=== PATIENT | female | born 1975 | race Caucasian/White ===

== ENCOUNTER 2017-05-09 19:21 | Inpatient (IN) | payer OTHER ==
[~2017-05-09] VITALS: Ht 160 cm; Wt 87.7 kg
[~2017-05-09 19:21] MED LIST: AMOXICILLIN 50500 MG PO; BUSPAR5 MG PO; CEPHALEXIN500 M1 PO; LORTAB 5/500 501 TAB PO; NO HOME MEDICATIONS; NORCO 325 MG-51 TAB; PERCOCET 5/321 UDTAB PO; PHENERGAN 25 TA25 MG PO; VICODIN 5/5001 UDTAB PO; ZANTAC 150150 MG PO
[2017-05-09 20:19] LABS: BASO % 0.7 % (0.0-2.0); EOS # 0.2 (0.0-0.7); EOS % 2.6 % (0-4.0); GRAN # 2.2 (1.4-6.5); GRAN % 37.6 % (42.2-75.2); LYMPH # 2.7 (1.2-3.4); LYMPH % 46.8 % (20.0-51.0); MEAN CELL VOLUME 81 fl (80.0-100.0); MEAN CORPUSCULAR HGB CONC 32 g/dl (33.0-37.0); MEAN PLATELET VOLUME 10.6 fl (7.4-10.4); MONO # 0.7 (0.1-0.6); MONO % 12.1 % (1.7-9.3); PLATELET COUNT 127 K/mm3 (130-400); RED BLOOD COUNT 3.27 M/mm3 (4.10-5.30); WHITE BLOOD COUNT 5.9 K/mm3 (4.8-10.8)
[2017-05-09 20:23] LABS: HEMATOCRIT 26.6 % (37.0-47.0); HEMOGLOBIN 8.4 g/dl (12.5-16.0); MEAN CORPUSCULAR HEMOGLOBIN 26 pg (27.0-31.0)
[2017-05-09 20:27] LABS: INR 1.5 (0.8-3.0)
[2017-05-09 20:33] LABS: ADJUSTED CALCIUM 8.7 mg/dL (8.4-10.2); ALANINE AMINOTRANSFERASE 33 U/L (9-52); ALBUMIN 2.8 gm/dL (3.5-5.0); ALKALINE PHOSPHATASE 145 U/L (50-136); ANION GAP 8 mmol/L (7-16); BILIRUBIN,TOTAL 1.8 mg/dL (0.0-1.0); BLOOD UREA NITROGEN 11 mg/dL (7-17); CALCIUM 7.7 mg/dL (8.4-10.2); CARBON DIOXIDE 28 mmol/L (22-30); CHLORIDE 100 mmol/L (98-107); CREATININE, serum 0.43 mg/dL (0.52-1.25); GLUCOSE 132 mg/dL (74-106); SODIUM 136 mmol/L (137-145); TOTAL PROTEIN 7.1 gm/dL (6.4-8.2)
[2017-05-09 20:45] LABS: B-TYPE NATRIURETIC PEPTIDE 1510 pg/mL (0-125)
[2017-05-09 20:46] LABS: POTASSIUM 2.8 mmol/L (3.4-5.0); TROPONIN-I < 0.012 ng/mL (0.000-0.034)
[2017-05-09 21:04] LABS: THYROID STIMULATING HORMONE < 0.015 uIU/mL (0.465-4.680)
[2017-05-09] MEDS ORDERED: TYLENOL 500MG500 MG PO (21:44)
[2017-05-09] MEDS ORDERED: LASIX 80MG TABL80 MG PO (21:44)
[2017-05-09] MEDS ORDERED: FLEXERIL5 MG PO (21:45)
[2017-05-09] MEDS ORDERED: TOPROL XL 25MG25 MG PO (21:46)
[2017-05-09] MEDS ORDERED: NATURAL IRON65 MG (21:46)
[2017-05-09] MEDS ORDERED: KLOR-CON M2020 MEQ PO (21:47)
[2017-05-09 23:14] VITALS: BP 146/77; PULSE 114; TEMP 98.3
[2017-05-09 23:19] VITALS: BP 146/77; PULSE 117; TEMP 98.3
[2017-05-10 03:41] VITALS: BP 110/84; PULSE 116; TEMP 98.7
[2017-05-10 06:03] LABS: BASO % 0.5 % (0.0-2.0); EOS # 0.2 (0.0-0.7); EOS % 2.7 % (0-4.0); GRAN # 1.9 (1.4-6.5); LYMPH # 2.9 (1.2-3.4); LYMPH % 51.6 % (20.0-51.0); MEAN CELL VOLUME 83 fl (80.0-100.0); MEAN CORPUSCULAR HGB CONC 32 g/dl (33.0-37.0); MEAN PLATELET VOLUME 10.7 fl (7.4-10.4); MONO # 0.7 (0.1-0.6); MONO % 12.2 % (1.7-9.3); PLATELET COUNT 126 K/mm3 (130-400); WHITE BLOOD COUNT 5.6 K/mm3 (4.8-10.8)
[2017-05-10 06:07] LABS: HEMATOCRIT 24.8 % (37.0-47.0); HEMOGLOBIN 7.8 g/dl (12.5-16.0); MEAN CORPUSCULAR HEMOGLOBIN 26 pg (27.0-31.0)
[2017-05-10 06:16] LABS: CALCIUM 7.6 mg/dL (8.4-10.2); CREATININE, serum 0.41 mg/dL (0.52-1.25); POTASSIUM 3.4 mmol/L (3.4-5.0)
[2017-05-10 07:15] VITALS: BP 135/70; PULSE 110; TEMP 98.1
[2017-05-10 11:00] VITALS: BP 124/60; PULSE 113
[2017-05-10 16:05] LABS: ARTERIAL BLD GAS O2 SATURATION 95.7 % (92-100); ARTERIAL BLD GAS TCO2 CT 31.1; ARTERIAL BLOOD GAS HCO3 29.7 meq/L (22-26); ARTERIAL BLOOD GAS PO2 85.8 mmHg (80-100); ARTERIAL BLOOD GAS pH 7.44 (7.35-7.45); OXYHEMOGLOBIN 94.1 %
[2017-05-10 16:07] LABS: ALLEN TEST YES; ALLENS TEST RESULT PASS; ATS? YES
[2017-05-10 17:02] VITALS: BP 135/63; PULSE 117; TEMP 98.4
[2017-05-10 20:11] VITALS: BP 129/61; PULSE 107; TEMP 98.9
[2017-05-10 22:58] VITALS: BP 118/52; PULSE 106; TEMP 98.8
[2017-05-11 05:27] VITALS: BP 107/46; PULSE 102; TEMP 99.4
[2017-05-11 07:00] VITALS: BP 110/59; PULSE 106; TEMP 98.6
[2017-05-11 11:11] VITALS: BP 119/50; PULSE 104; TEMP 98.3
== END 2017-05-11 14:14 | disposition home or self-care (01) | DRG 645 ==
LOC: COL.ER 19:21 → MEDICAL 21:24
PROVIDERS: Emergency Medicine; Nurse Practitioner; Nurse Practitioner Family
DX: E05.91 Thyrotoxicosis, unspecified with thyrotoxic crisis or storm (principal); E87.6 Hypokalemia; D50.9 Iron deficiency anemia, unspecified; R00.0 Tachycardia, unspecified; L30.4 Erythema intertrigo
CPT/HCPCS: 99223-AI; 99239; C8924; J1650; J1720; Q9957